=== PATIENT | female | born 1990 | race Caucasian/White ===

== ENCOUNTER 2021-12-13 13:44 | Emergency (ER) | payer OTHER ==
[2021-12-13 15:51] LABS: BASOPHIL 0.2 % (0-2); EOSINOPHIL 0.2 % (0-5); HCT 43.1 % (37.0-47.0); HGB 14.6 g/dl (12.5-16.0); LYMPHOCYTE 9.7 % (15-48); MCH 30.6 pg (25.0-31.0); MCHC 33.9 g/dL (32.0-36.0); MCV 90.4 fL (78.0-100.0); MONOCYTE 2.3 % (0-12); MPV 12.1 fL (6.0-9.5); NEUTROPHIL 87.3 % (41-80); NRBC 0; PLT 186 K/uL (150-400); RBC 4.77 M/uL (4.20-5.40); RDW 11.9 % (11.5-14.0); WBC 6.6 K/uL (4.0-10.5)
[2021-12-13] MEDS ORDERED: PERIDEX15 ML PO (16:08)
[2021-12-13] MEDS ORDERED: VENTOLIN HFA IN18 GM INH (16:08)
== END 2021-12-13 16:13 | disposition home or self-care (01) ==
LOC: FER 13:44
PROVIDERS: Nurse Practitioner Family
DX: Z88.6 Allergy status to analgesic agent (principal); W08.XXXA Fall from other furniture, initial encounter; Y92.009 Unspecified place in unspecified non-institutional (private) residence as the place of occurrence of the external cause
CPT/HCPCS: 36415; 70450; 70486; 72125; 85025